=== PATIENT | female | born 1985 | race Caucasian/White ===

== ENCOUNTER 2016-08-27 09:55 | Outpatient (CLI) | payer BC ==
[~2016-08-27] VITALS: Ht 157.5 cm; Wt 68.0 kg
[~2016-08-27 09:55] MED LIST: AZIT-21 PO; NORG1TAB; ONDAN4ODT PO; PRCD5U PO
--- OUTSIDE RECORDS SUMMARY | 2016-08-27 10:00 | XMS REPORT | Continuity of Care Document ---
Author Author [facility] Organization [facility] Address Unknown Phone Unavailable Care Team Providers Care Utilization Coordinator Name Role Phone PCP Unavailable Source Comments Some departments are not documenting in the electronic medical record. If you do not see the information that you expected, contact Release of Information in the Health Information Management department at [phone] for further assistance in locating additional records.[facility] Active Allergies and Adverse Reactions Not on File Current Medications Not on file Active Problems Not on file Social History Tobacco Use Types Packs/Day Years Used Date Never Assessed Plan of Care Health Maintenance Due Date Last Done Comments Physical (Comprehensive) 12/12/1991 Exam Pertussis Vaccine 12/12/1995 Tetanus Vaccine 2001 Influenza Vaccine 03/14/2016 Cervical Cancer Screening 01/02/2019 01/03/2016 Results from Last 3 Months Not on file
[2016-08-27 10:03] VITALS: BP 121/69
[2016-08-27] MEDS ORDERED: PREN-53 PO (10:09)
[2016-08-27] MEDS ORDERED: FLU TRIvalent (5 YOA+) 2016-17 (AFLURIA) 0.5 ML IM ONE (11:00)
--- NOTE | 2016-08-28 08:38 | Physician Query-Final Dx ---
GILMER SALINAS 08/28/16 0838: Clinic Account Progress/Dx Physician Query: Please give diagnosis Date of Service Aug 27, 2016 at 09:55 DENNIS MORSE MD 08/28/16 1131: Clinic Account Progress/Dx DIAGNOSIS: Diagnosis Fa;se labor GILMER SALINAS Aug 28, 2016 08:38 DENNIS MORSE MD Aug 28, 2016 11:31
== END 2016-08-27 12:15 | disposition home or self-care (01) ==
LOC: LDRP 09:55 → WSo 09:55
PROVIDERS: ATTEND Obstetrics & Gynecology
DX: O47.02 False labor before 37 completed weeks of gestation, second trimester (principal); Z3A.27 27 weeks gestation of pregnancy
CPT/HCPCS: 87210; 99213

== ENCOUNTER 2016-11-20 06:52 | Inpatient (IN) | payer BC ==
[2016-11-20] VITALS (39 sets, daily range): BP systolic 97–149; BP diastolic 55–90
[~2016-11-20] VITALS: Ht 157.5 cm; Wt 75.5 kg
[~2016-11-20 06:52] MED LIST changes: +PREN-53 PO
[2016-11-20] MEDS ORDERED: OXYTOCIN/NORMAL SALINE 500 ML IV SCH ×2 (07:41→07:43)
[2016-11-20] MEDS ORDERED: TETANUS,DIPTH,PERTUSS P/F (BOOSTRIX) 0.5 ML VIAL IM ONE (07:45)
[2016-11-20] MEDS ORDERED: oxyCODONE/APAP 10/325MG (PERCOCET 10) TABLET PO PRN (07:45)
[2016-11-20] MEDS ORDERED: BENZOCAINE/MENTHOL (DERMOPLAST) 56 ML CAN TP PRN (07:45)
[2016-11-20] MEDS ORDERED: MEASLES,MUMPS,RUBELLA 1 EA INJ SC ONE (07:45)
--- NOTE | 2016-11-20 07:47 | History & Physical ---
History and Physical this patient is a 30-year-old white female with an EDC of 5 1717 presenting now for induction of labor electively. This was result of IVF. has been uncomplicated GBS culture was negative. Patient reports no rupture membranes or bleeding. She does feel baby moving. Allergies are none Medications are vitamins Past medical history, past surgical history, obstetric history, family history, and social histories are per the antepartum record HEENT exam is normal Neck is supple no lymphadenopathy no thyromegaly Abdomen is gravid soft nontender nondistended Extreme show no clubbing cyanosis. there is no Homans sign Pelvic exam is pending Assessment and plan 39 week intrauterine admitted now for induction of labor electively. This was a result of IVF. Anticipation is for vaginal delivery. Plans preparation would be in place for if needed. 39 week elective induction of labor Allergies and Home Medications Allergies Coded Allergies: No Known Drug Allergies (Verified , 03/14/09) Home Medications Mrg369/Iron Fumarate/FA/Dss Unknown Strength Tablet, 1 EACH PO DAILY, (Reported) DENNIS MORSE MD November 20, 2016 7:47 am
[2016-11-20 08:05] LABS: BASOPHILS % (AUTO) 0 % (0-10); EOSINOPHILS # (AUTO) 0.2 10^3/uL (0.0-0.3); EOSINOPHILS % (AUTO) 2 % (0-10); LYMPHOCYTES % (AUTO) 21 % (12-44); MEAN CORPUSCULAR HEMOGLOBIN 29 PG (25-34); MEAN CORPUSCULAR HGB CONC 33 G/DL (32-36); MEAN CORPUSCULAR VOLUME 88 FL (80-99); MEAN PLATELET VOLUME 10.2 FL (7.4-10.4); MONOCYTES # (AUTO) 0.7 X 10^3 (0.0-1.0); MONOCYTES % (AUTO) 7 % (0-12); NEUTROPHILS # (AUTO) 6.9 X 10^3 (1.8-7.8); NEUTROPHILS % (AUTO) 70 % (42-75); PLATELET COUNT 292 10^3/uL (130-400); RED BLOOD COUNT 4.23 10^6/uL (4.35-5.85); RED CELL DISTRIBUTION WIDTH 13.8 % (10.0-14.5); WHITE BLOOD COUNT 9.8 10^3/uL (4.3-11.0)
[2016-11-20] MEDS: D5 LR IV SOLUTION 1,000 ML IV SCH ×2 (08:17→17:45)
[2016-11-20] MEDS ORDERED: SUFENTA 0.6MCG/ML BUPIVA 0.125 100 ML ONE (08:32)
[2016-11-20 08:41] LABS: BAND NEUTROPHILS 5 %; BASOPHILS % (MANUAL) 0 %; EOSINOPHILS % (MANUAL) 2 %; LYMPHOCYTES % (MANUAL) 26 %; NEUTROPHILS % (MANUAL) 62 %
[2016-11-20] MEDS ORDERED: BUPIVACAINE 0.25% 30 ML (SENSORCAINE) VIAL ONE (08:59)
[2016-11-20] MEDS ORDERED: LACTATED RINGERS 1,000 ML IV ONE (09:04)
[2016-11-20] MEDS ORDERED: BUPIVACAINE 0.25% 30 ML (SENSORCAINE) VIAL INJ ONE (09:15)
[2016-11-20] MEDS ORDERED: EPIDURAL (SUFENTA 0.6MCG/ML BUPIVA 0.125%) 100 ML BAG EPI SCH (09:15)
[2016-11-20] MEDS ORDERED: NALOXONE 0.4 MG/ML 1 ML (NARCAN) VIAL IV PRN (09:15)
[2016-11-20] MEDS ORDERED: ONDANSETRON 4 MG/2 ML (SDV) Z0FRAN IV PRN (09:15)
[2016-11-20] MEDS ORDERED: LIDOCAINE/EPI 1%-1:200,000 (XYLOCAINE) 30 ML VIAL ONE (12:08)
[2016-11-20] MEDS ORDERED: LIDOCAINE/EPI 1%-1:200,000 (XYLOCAINE) 30 ML VIAL INJ ONE (12:38)
[2016-11-20] MEDS: KETOROLAC 30 MG/ML VIAL IV SCH ×3 (13:39→20:26)
[2016-11-20] MEDS: DOCUSATE SODIUM 100 MG (COLACE) CAP PO SCH ×2 (17:46→20:26)
--- NOTE | 2016-11-20 18:20 | OB Bishop Score ---
Meek Score 8 8 DENNIS MORSE MD November 20, 2016 6:20 pm
--- NOTE | 2016-11-21 00:31 | OPERATIVE REPORT ---
DATE OF SERVICE: 11/20/2016 DELIVERY NOTE The patient delivered by term spontaneous vaginal delivery a viable female infant with Apgars of 8 and 9 at 1 and 5 minutes, respectively. Weight is 6 pounds 13 ounces, time of 12:42, and a cord arterial blood pH is pending. The was delivered over a midline episiotomy that was performed at the patient's request when she had pushed the baby down on the perineum and could feel herself tearing periurethrally and around the hymenal ring. Episiotomy was performed. The baby delivered with the next push. The infant was bulb suctioned Topof[place] on delivery of the head and again on completion of delivery. The umbilical cord was doubly clamped. When it was pulseless, the father cut the cord. The baby was passed to mom's abdomen. Cord blood was obtained including a cord blood pH due to repetitive decels. The placenta then delivered spontaneously Saha. It was a normal placenta, but it did have an accessory lobe attached thereto. The placental mass was sent to pathology for permanent section. The cervix, vagina, rectum and perineum were examined and found intact, except for small periurethral lacerations, a couple of hymenal lacerations and the midline episiotomy. The episiotomy was repaired with a single suture of 3-0 Vicryl to good hemostasis and to good reapproximation anatomically. The lacerations were oozing some periurethrally and around the introitus, but these were not bleeding excessively and were not repaired. Sponge and needle counts were correct on completion of the delivery and the repair. Estimated blood loss was around 200 mL. The patient remained in the LDR for recovery. The baby remained with the mom. Job ID: [id number] DocumentID: [id number] Dictated Date: 11/20/2016 13:02:39 Butter Maker Date: 11/21/2016 00:30:44 Dictated By: DENNIS MORSE MD
[2016-11-21 02:05] VITALS: BP 111/67
[2016-11-21] MEDS: KETOROLAC 30 MG/ML VIAL IV SCH (02:08)
[2016-11-21 06:30] VITALS: BP 112/66
[2016-11-21] MEDS ORDERED: IBUPROFEN 800 MG (MOTRIN) TAB PO SCH (07:45)
--- NOTE | 2016-11-21 07:49 | Progress Note-Standard ---
Standard Progress Note Progress Notes/Assess & Plan Progress/Assessment & Plan this patient is without complaint. She is ablating, voiding, tolerating by mouth, denies chest pain, denies shortness breath, denies nausea vomiting, denies headache, she is requesting discharge home. Vital Signs Date Time Temp Pulse Resp B/P (MAP) Pulse Ox O2 Delivery O2 Flow Rate FiO2 11/21/16 06:30 98.4 78 18 112/66 98 Room Air 11/21/16 02:05 99.1 75 18 111/67 96 Room Air 11/20/16 20:00 97.2 74 19 114/72 97 Room Air 11/20/16 14:53 91 18 103/60 Room Air 11/20/16 14:37 102 97/57 11/20/16 14:23 90 18 105/55 11/20/16 14:08 88 18 115/64 11/20/16 13:53 101 18 125/57 11/20/16 13:38 98 18 112/55 11/20/16 13:23 98.5 117 18 124/86 11/20/16 13:08 97.4 115 18 125/59 11/20/16 12:53 98.3 99 135/67 11/20/16 11:15 71 18 110/64 100 11/20/16 11:00 69 18 100 11/20/16 10:45 74 18 115/57 100 11/20/16 10:40 75 18 117/59 100 11/20/16 10:35 73 18 120/64 100 11/20/16 10:30 70 18 114/61 100 11/20/16 10:25 83 18 112/63 100 11/20/16 10:20 71 18 119/68 100 11/20/16 10:15 65 18 113/59 100 11/20/16 10:10 80 18 112/58 100 11/20/16 10:05 113 18 112/58 100 11/20/16 10:00 124 18 114/64 100 11/20/16 09:55 90 18 112/58 99 11/20/16 09:50 82 18 121/56 99 11/20/16 09:45 128 18 128/60 100 11/20/16 09:40 106 18 125/65 99 11/20/16 09:35 112 18 120/67 11/20/16 09:30 111 18 122/61 11/20/16 09:25 83 18 128/64 99 11/20/16 09:20 92 18 119/69 98 11/20/16 09:15 84 18 143/72 11/20/16 09:00 87 18 134/76 11/20/16 08:45 97.6 77 18 126/73 11/20/16 08:30 83 133/84 I & O 11/21/16 07:00 Intake Total 1700 ml Balance 1700 ml vital signs are stable. Patient afebrile. Fundus is firm below the umbilicus and nontender. Extremities show no clubbing cyanosis. There is no Homans sign. There is slight pretibial pitting edema that is normal. Assessment and plan post day number 1 status post term spontaneous vaginal delivery doing well. Plan is for discharge home with follow-up in clinic. Final Diagnosis 39 week spontaneous vaginal delivery DENNIS MORSE MD November 21, 2016 7:49 am
[2016-11-21] MEDS ORDERED: IBUP-1780 PO (07:50)
[2016-11-21] MEDS ORDERED: OXYC-465 PO (07:50)
[2016-11-21] MEDS ORDERED: DOCU100C37 PO (07:50)
--- NOTE | 2016-11-21 07:51 | Discharge Instructions ---
Discharge Instructions Discharge Medications New, Converted or Re-Newed RX: RX on Chart Patient Instructions Patient Instructions: as directed Return to The Hospital For: as directed Activity & Diet Discharge Diet: No Restrictions Activity as Tolerated: No Orders-Post D/C & Referrals Follow Up Appt: Call to make follow up appt. for patient in 4 weeks. Activity Per routine post vaginal delivery instructions. Please call in RX to patient pharmacy. Diet as tolerated Patient may shower or tub bathe as desired. DENNIS MORSE MD November 21, 2016 7:51 am
[2016-11-21 08:00] VITALS: BP 110/72
[2016-11-21] MEDS: DOCUSATE SODIUM 100 MG (COLACE) CAP PO SCH (09:44)
[2016-11-21 12:00] VITALS: BP 121/76
--- NOTE | 2016-11-21 13:16 | Anesthesia-Regional Post-Op ---
Regional Patient Condition Mental Status: Alert, Oriented x3 Circulation: Same as Pre-Op Headache: Absent Sensation: Full Recovery Motor Block: Absent Post Op Complications Complications None Follow Up Care/Instructions Patient Instructions None needed. Anesthesia/Patient Condition Patient is doing well, no complaints, stable vital signs, no apparent adverse anesthesia problems. No complications reported per nursing. YOEL WILSON CRNA November 21, 2016 13:16
== END 2016-11-21 14:50 | disposition home or self-care (01) | DRG 775 ==
LOC: LDRP 06:52
PROVIDERS: ADMIT Obstetrics & Gynecology; ATTEND Obstetrics & Gynecology
PROC: 10E0XZZ Delivery of Products of Conception, External Approach (ICD-10-PCS; principal; 2016-11-20)
PROC: 0W8NXZZ Division of Female Perineum, External Approach (ICD-10-PCS; 2016-11-20)
PROC: 3E033GC Introduction of Other Therapeutic Substance into Peripheral Vein, Percutaneous Approach (ICD-10-PCS; 2016-11-20)
DX: O80 Encounter for full-term uncomplicated delivery (principal); Z37.0 Single live birth; Z3A.39 39 weeks gestation of pregnancy
CPT/HCPCS: 36415; 85007; 85027; 86850; 86900; 86901

== ENCOUNTER 2019-10-27 00:28 | Inpatient (IN) | payer BC ==
[~2019-10-27] VITALS: Ht 157.5 cm; Wt 75.0 kg
[2019-10-27] VITALS (43 sets, daily range): BP systolic 108–190; BP diastolic 55–87
[~2019-10-27 00:28] MED LIST changes: +DOCU100C37 PO; +IBUP-1780 PO; +OXYC-465 PO
[2019-10-27] MEDS ORDERED: D5 LR IV SOLUTION 1,000 ML IV ONE (00:30)
--- NOTE | 2019-10-27 00:30 | NUR ---
EBONY YAÑEZ presented to unit via EMS from home, accompanied by EMS staff , with c/o LABOR, SROM. EBONY YAÑEZ gowned and to bed. EFHM and TOCO applied, VS taken. EBONY YAÑEZ oriented to bed controls, call light, TV, heat, and A/C controls.
[2019-10-27] MEDS ORDERED: D5 LR IV SOLUTION 1,000 ML IV SCH (00:35)
[2019-10-27] MEDS ORDERED: AMPICILLIN FOR IV USE 2,000 MG in WATER (STERILE) FOR INJECTION 14.8 ML IV SCH (00:35)
[2019-10-27] MEDS ORDERED: WATER (STERILE) FOR INJECTION 20 ML ONE (00:39)
[2019-10-27] MEDS ORDERED: AMPICILLIN FOR IV USE 2,000 MG VIAL ONE (00:39)
[2019-10-27 00:57] LABS: BASOPHILS % (AUTO) 0 % (0-10); EOSINOPHILS # (AUTO) 0.1 10^3/uL (0.0-0.3); EOSINOPHILS % (AUTO) 1 % (0-10); HEMATOCRIT 35 % (35-52); HEMOGLOBIN 11.5 G/DL (11.5-16.0); LYMPHOCYTES # (AUTO) 2.6 X 10^3 (1.0-4.0); LYMPHOCYTES % (AUTO) 27 % (12-44); MEAN CORPUSCULAR HGB CONC 33 G/DL (32-36); MEAN CORPUSCULAR VOLUME 87 FL (80-99); MEAN PLATELET VOLUME 9.8 FL (7.4-10.4); MONOCYTES % (AUTO) 11 % (0-12); NEUTROPHILS % (AUTO) 62 % (42-75); PLATELET COUNT 292 10^3/uL (130-400); RED CELL DISTRIBUTION WIDTH 14.8 % (10.0-14.5); WHITE BLOOD COUNT 9.8 10^3/uL (4.3-11.0)
[2019-10-27 01:28] LABS: MEAN CORPUSCULAR HEMOGLOBIN 28 PG (25-34)
[2019-10-27] MEDS ORDERED: fentaNYL 2 mcg/ml BUPIVA 0.125 100 ML ONE (01:28)
[2019-10-27] MEDS ORDERED: BUPIVACAINE 0.25% 30 ML (SENSORCAINE) VIAL ONE (01:42)
[2019-10-27] MEDS ORDERED: fentaNYL INJECTION 100 MCG/2 ML AMP ONE (01:43)
[2019-10-27] MEDS ORDERED: LACTATED RINGERS 1,000 ML IV ONE (02:29)
[2019-10-27] MEDS ORDERED: CATHETER FLUSH 10 ML SYR IV PRN (02:30)
[2019-10-27] MEDS ORDERED: EPIDURAL (fentaNYL 2 MCG/ML BUPIVA 0.125%)100 ML BAG EPI SCH (02:30)
[2019-10-27] MEDS ORDERED: NALOXONE 0.4 MG/ML 1 ML (NARCAN) VIAL IV PRN (02:30)
[2019-10-27] MEDS ORDERED: AMPICILLIN FOR IV USE 1,000 MG/VIAL ONE (04:39)
[2019-10-27] MEDS ORDERED: WATER (STERILE) FOR INJECTION 10 ML ONE (04:39)
[2019-10-27] MEDS ORDERED: OXYTOCIN PRE-MIX DRIP 500 ML IV ONE (04:39)
[2019-10-27] MEDS ORDERED: AMPICILLIN FOR IV USE 1,000 MG in WATER (STERILE) FOR INJECTION 7.4 ML IV SCH (04:45)
[2019-10-27] MEDS ORDERED: OXYTOCIN PRE-MIX DRIP 500 ML IV SCH ×2 (04:59→06:35)
[2019-10-27] MEDS ORDERED: LIDOCAINE/EPI 2% 1:200,00 (XYLOCAINE) 10 ML VIAL ONE (06:07)
--- NOTE | 2019-10-27 06:39 | History & Physical ---
History and Physical Date Seen by Provider: Oct 27, 2019 Time Seen by Provider: 06:37 This patient is a 33-year-old white female with an EDC of November 04, 2019. She presented and active labor. Her GBS culture was positive. She was started on ampicillin for GBS prophylaxis on admission. She labored through the night now complete. She presented with complaint of rupture membrane as well. Allergies are none Medications are vitamins Medical social and surgical histories are per the antepartum record HEENT exam is normal Neck is supple no lymphadenopathy no thyromegaly Abdomen is gravid soft nontender nondistended Extreme show no clubbing cyanosis. Homans sign. Pelvic exam is deferred Vital Signs Date Time Temp Pulse Resp B/P (MAP) Pulse Ox O2 Delivery O2 Flow Rate FiO2 10/27/19 05:15 76 18 117/64 (81) 100 Room Air 10/27/19 05:00 36.0 95 18 131/73 (92) 100 Room Air 10/27/19 04:45 74 18 117/58 (77) 99 Room Air 10/27/19 04:30 93 18 122/71 (88) 99 Room Air 10/27/19 04:15 81 18 121/70 (87) 100 Room Air 10/27/19 04:00 75 18 123/58 (79) 99 Room Air 10/27/19 03:45 77 18 120/62 (81) 100 Room Air 10/27/19 03:30 74 18 119/59 (79) 100 Room Air 10/27/19 03:15 90 18 117/73 (88) 100 Room Air 10/27/19 03:00 77 18 121/65 (83) 100 Room Air 10/27/19 02:55 83 18 108/63 (78) 100 Room Air 10/27/19 02:50 96 18 122/62 (82) 100 Room Air 10/27/19 02:45 85 18 120/64 (82) 100 Room Air 10/27/19 02:40 76 18 111/75 (87) 99 Room Air 10/27/19 02:35 82 18 114/66 (82) 99 Room Air 10/27/19 02:30 75 18 113/56 (75) 99 Room Air 10/27/19 02:25 75 18 110/60 (77) 99 Room Air 10/27/19 02:20 36.5 85 18 110/65 (80) 99 Room Air 10/27/19 02:15 98 18 125/62 (83) 100 Room Air 10/27/19 02:10 96 18 127/59 (81) 100 Room Air 10/27/19 02:05 98 18 141/72 (95) 100 Room Air 10/27/19 01:50 80 18 122/68 (86) 100 Room Air 10/27/19 01:35 77 18 123/67 (85) Room Air 10/27/19 01:20 76 18 118/67 (84) Room Air 10/27/19 01:04 36.5 76 18 124/72 (89) Room Air 10/27/19 01:00 36.2 96 18 99 Room Air 10/27/19 00:38 36.2 96 18 99 Room Air I & O 10/27/19 07:00 Intake Total 1022.2 ml Balance 1022.2 ml Vital signs are stable. Patient is afebrile. Assessment and plan term at 38+ weeks gestation. Patient presented in active labor now complete. We anticipate a vaginal delivery shortly. 38 week in active labor with spontaneous rupture membranes Allergies and Home Medications Allergies Coded Allergies: No Known Drug Allergies (Verified , 03/14/09) Home Medications Docusate Sodium 100 Mg Capsule, 100 MG PO BID Prescribed by: DENNIS IRWIN on 11/21/16749 Ibuprofen 800 Mg Tablet, 800 MG PO Q6H Prescribed by: DENNIS IRWIN on 11/21/16749 Oxycodone HCl/Acetaminophen 1 Each Tablet, 0 TAB PO Q4H PRN for PAIN-MODERATE Prescribed by: DENNIS IRWIN on 11/21/16749 Pys570/Iron Fumarate/FA/Dss Unknown Strength Tablet, 1 EACH PO DAILY, (Reported) Patient Home Medication List Home Medication List Reviewed: Yes Clinical Quality Measures DVT/VTE Risk/Contraindication: Risk Factor Score Per Nursin RFS Level Per Nursing on Admit: 1=Low/No VTE PPX DENNIS MORSE MD Oct 27, 2019 06:39
[2019-10-27] MEDS ORDERED: DCS100C PO (06:41)
[2019-10-27] MEDS ORDERED: OXYC1TAB87 PO (06:41)
[2019-10-27] MEDS ORDERED: IBUP-1780 PO (06:41)
--- NOTE | 2019-10-27 06:41 | Discharge Inst-Surgical ---
Discharge Inst-Surgical Depart Medication/Instructions New, Converted or Re-Newed RX: RX on Chart Consults/Follow Up Patient Instructions: As directed Orders & Referrals Follow Up Appt: Call to make follow up appt. for patient in 4 weeks. Activity Per routine post vaginal delivery instructions. Please call in RX to patient pharmacy. Diet as tolerated Patient may shower or tub bathe as desired. Activity Activity as Tolerated: No Diet Discharge Diet: No Restrictions DENNIS MORSE MD Oct 27, 2019 06:41
[2019-10-27] MEDS ORDERED: TETANUS,DIPTH,PERTUSS P/F (BOOSTRIX) 0.5 ML VIAL IM ONE (06:45)
[2019-10-27] MEDS ORDERED: ONDANSETRON 4 MG/2 ML (SDV) Z0FRAN IVP PRN (06:45)
[2019-10-27] MEDS ORDERED: BENZOCAINE/MENTHOL (DERMOPLAST) 60 ML CAN TP PRN (06:45)
[2019-10-27] MEDS ORDERED: oxyCODONE/APAP 5/325MG (PERCOCET 5) TABLET PO PRN (06:45)
[2019-10-27] MEDS ORDERED: MEASLES,MUMPS,RUBELLA 1 EA INJ SC ONE (06:45)
--- NOTE | 2019-10-27 07:10 | NUR ---
Report given to Ela WILLARD.
--- NOTE | 2019-10-27 07:30 | NUR ---
0730 FF @ u with light rubra flow. VSS stable. Breast feeding . Good bonding. 0755 FF @ u but expressed moderate sized clots. Pads changed. 0810 FF @ u no clots. Moderate rubra flow 0830 FF @ u with moderate rubra flow. No clots. 0900 FF @ u/1 with moderate rubra flow. Pad changed. Denies pain. Pt could be transferred to but left leg is still numb from epidural. Also awaiting a room to be available with [facility]. 1000 Complains of cramping.
--- NOTE | 2019-10-27 07:47 | OPERATIVE REPORT ---
DATE OF SERVICE: 10/27/2019 DELIVERY NOTE The patient delivered by term spontaneous vaginal delivery a viable female infant with Apgars of 9 and 9 at 1 and 5 minutes respectively. Weight is 8 pounds and 1 ounce, cord blood pH 7.27. time of 06:48. The infant was delivered over an intact perineum under epidural analgesia. There was a nuchal cord x1 that was easily released. The was bulb suctioned on delivery of the head and again on completion of delivery. The umbilical cord was doubly clamped. When it was pulseless, father cut the cord and the baby was passed to mom's abdomen. The placenta delivered promptly spontaneously Saha. It was normal with a 3-vessel cord. The cervix, vagina, perineum, and rectum were examined and found intact, except for some mild superficial abrasion at the introitus and in the periurethral areas bilaterally. These were hemostatic and required no repair. Sponge and needle counts were correct on completion of delivery and the post-delivery inspection. The mom tolerated the delivery well and remained in the LDR for recovery. Estimated blood loss was around 100 mL. The baby remained in the room with the mom. Job ID: [id number] DocumentID: [id number] Dictated Date: 10/27/2019 07:02:22 Geophysical Laboratory Director Date: 10/27/2019 07:47:11 Dictated By: MD DERRICK JEFFREY
[2019-10-27] MEDS ORDERED: WITCH HAZEL(TUCKS) 40 EA JAR ONE (08:09)
[2019-10-27] MEDS ORDERED: IBUPROFEN 800 MG (MOTRIN) TAB PO ONE (08:45)
[2019-10-27] MEDS: DOCUSATE SODIUM 100 MG (COLACE) CAP PO SCH ×2 (08:59→20:02)
[2019-10-27] MEDS: KETOROLAC 30 MG/ML VIAL IVP SCH ×3 (09:12→22:36)
[2019-10-27] MEDS ORDERED: WITCH HAZEL(TUCKS) 40 EA JAR TOP PRN (09:15)
--- NOTE | 2019-10-27 14:24 | NUR ---
This RN took over Pt care at this time. Pt verbalizes no complaints at this time
[2019-10-27] MEDS: CATHETER FLUSH 10 ML SYR IV SCH ×2 (17:59→22:36)
[2019-10-28] VITALS: BP 114/60
[2019-10-28 04:00] VITALS: BP 113/60
[2019-10-28] MEDS ORDERED: IBUPROFEN 800 MG (MOTRIN) TAB PO ONE (05:36)
[2019-10-28] MEDS: IBUPROFEN 800 MG (MOTRIN) TAB PO SCH ×2 (06:03→11:49)
[2019-10-28] MEDS: CATHETER FLUSH 10 ML SYR IV SCH (06:07)
[2019-10-28 08:00] VITALS: BP 115/64
[2019-10-28] MEDS: DOCUSATE SODIUM 100 MG (COLACE) CAP PO SCH (08:07)
--- NOTE | 2019-10-28 09:16 | Anesthesia-Regional Post-Op ---
Regional Patient Condition Mental Status: Alert, Oriented x3 Circulation: Same as Pre-Op Headache: Absent Sensation: Full Recovery Motor Block: Absent Post Op Complications Complications None Follow Up Care/Instructions Patient Instructions None needed. Anesthesia/Patient Condition Patient is doing well, no complaints, stable vital signs, no apparent adverse anesthesia problems. No complications reported per nursing. JONY AVILA CRNA Oct 28, 2019 09:16
[2019-11-01] MEDS ORDERED: IBUPROFEN 800 MG (MOTRIN) TAB PO SCH (06:00)
== END 2019-10-28 13:10 | disposition home or self-care (01) | DRG 807 ==
LOC: LDRP 00:28 → WSo 00:28 → LDRP 00:50
PROVIDERS: ADMIT Obstetrics & Gynecology; ATTEND Obstetrics & Gynecology
PROC: 10E0XZZ Delivery of Products of Conception, External Approach (ICD-10-PCS; principal; 2019-10-27)
DX: O99.824 Streptococcus B carrier state complicating childbirth (principal); Z37.0 Single live birth; O69.81X0 Labor and delivery complicated by cord around neck, without compression, not applicable or unspecified; O71.82 Other specified trauma to perineum and vulva; Z3A.38 38 weeks gestation of pregnancy
CPT/HCPCS: 36415; 85025; 86780; 86850; 86900; 86901; 99212

== ENCOUNTER 2022-07-26 01:22 | Emergency (ER) | payer BC ==
[~2022-07-26] VITALS: Ht 157.5 cm; Wt 63.5 kg
[~2022-07-26 01:22] MED LIST changes: +DOCU-239 PO; -OXYC-465 PO; +OXYC-556 PO; +OXYC1TAB87 PO
[2022-07-26] MEDS ORDERED: ONDANSETRON 4 MG/2 ML (SDV) Z0FRAN IVP ONE (01:30)
[2022-07-26] MEDS ORDERED: LACTATED RINGERS 1,000 ML IV ONE (01:30)
--- NOTE | 2022-07-26 01:41 | ED General ---
General Stated Complaint: ETOH Source of Information: EMS Exam Limitations: Intoxication (PT IS NOT ANWERING QUESTIONS ON ARRIVAL) History of Present Illness Date Seen by Provider: Jul 26, 2022 Time Seen by Provider: 01:28 Initial Comments PT ARRIVES VIA EMS FROM "505" BAR PT HAS BEEN DRINKING AN UNKNOWN AMOUNT OF ALCOHOL TONIGHT, AND WAS "PASSED OUT" ON THE BATHROOM AT THE BAR PT HAS VOMITED PRIOR TO ARRIVAL. EMS HAS STARTED IV FLUIDS, BUT NO MEDICATIONS. ON ARRIVAL, PT IS SLUMPED OVER TO THE LEFT, AND IS NOT TALKING OR FOLLOWING COMMANDS A FEW MINUTES AFTER ARRIVAL, SHE IS NOW AWAKE AND SITTING UP AND ABLE TO ANSWER SOME QUESTIONS, SHE KNOWS SHE IS AT THE ER SHE STATES SHE DOES NOT KNOW WHAT HAPPENED OR WHY SHE IS HERE SHE ADMITS TO DRINKING, BUT DOES NOT REMEMBER WHAT SHE WAS DRINKING OR HOW MUCH. SHE IS ABLE TO ANSWER BASIC HEALTH QUESTIONS. SHE DENIES NAUSEA AT THIS TIME. SHE DENIES PAIN ANYWHERE AT THIS TIME. PCP: DR. KRISTA COTTER Allergies and Home Medications Allergies Coded Allergies: No Known Drug Allergies (Verified , 03/14/09) Patient Home Medication List Home Medication List Reviewed: Yes Docusate Sodium (Dok) 100 Mg Capsule, 100 MG PO BID Prescribed by: DENNIS IRWIN on 10/27/19640 Ibuprofen (Ibuprofen) 800 Mg Tablet, 800 MG PO Q6HR Prescribed by: DENNIS IRWIN on 10/27/19640 Oxycodone HCl/Acetaminophen (Percocet 5-325 mg Tablet) 1 Each Tablet, 1 TAB PO Q4H PRN for PAIN-MODERATE (5-7) Prescribed by: DENNIS IRWIN on 10/27/19640 Usm610/Iron Fumarate/FA/Dss ( 19 Tablet) Unknown Strength Tablet, 1 EACH PO DAILY, (Reported) Entered as Reported by: APOORVA MORALES on 08/27/16 1009 Review of Systems Review of Systems Constitutional: no symptoms reported EENTM: no symptoms reported Respiratory: no symptoms reported Cardiovascular: no symptoms reported Gastrointestinal: see HPI, vomiting Genitourinary: no symptoms reported Musculoskeletal: no symptoms reported Skin: no symptoms reported Psychiatric/Neurological: See HPI Past Ftixxqb-Zoiyba-Jrlkmn Hx Patient Social History Alcohol Use?: Yes Immunizations Up To Date PED Vaccines UTD: Yes Seasonal Allergies Seasonal Allergies: No Past Medical History Surgeries: No Respiratory: No Cardiac: No Neurological: No Female Reproductive Disorders: Denies Sexually Transmitted Disease: No HIV/AIDS: No Genitourinary: No Gastrointestinal: No Musculoskeletal: No Endocrine: No HEENT: No Cancer: No Psychosocial: Yes Anxiety, Depression Integumentary: No Blood Disorders: No Adverse Reaction/Blood Tranf: No Family Medical History Diabetes mellitus GRANDMOTHER, MATERNAL FH: neuropathy 19 MOTHER Hepatitis C 19 FATHER 19 MOTHER Hypertension 19 FATHER Kidney disease 19 FATHER (KIDNEY FAILURE) Physical Exam Vital Signs Vital Signs - First Documented 07/26/22 01:24 Temp 36.1 Pulse 108 Resp 16 B/P (MAP) 111/73 (86) Pulse Ox 99 O2 Delivery Room Air Capillary Refill : Height, Weight, BMI Height: 5'2.00" Weight: 166lbs. 6.0oz. 75.125014yb; 30.23 BMI Method:Stated General Appearance: Other (REEKS OF ALCOHOL, SPEECH IS SLOW AND SLURRED, COVERED IN VOMIT. ) HEENT: PERRL/EOMI, Other (NO EXTERNAL EVIDENCE OF TRAUMA TO HEAD OR FACE, NO TENDERNESS TO HEAD OR FACE) Neck: Full Range of Motion, Normal Inspection, Non Tender, Supple Respiratory: Normal Breath Sounds, No Accessory Muscle Use, No Respiratory Distress Cardiovascular: Regular Rate, Rhythm, No Murmur Gastrointestinal: Non Tender, Soft Back: No CVA Tenderness, No Vertebral Tenderness Extremity: Normal Inspection Neurologic/Psychiatric: Alert, No Motor/Sensory Deficits (GROSSLY INTACT), animal husbandry worker II-XII Norm as Tested (GROSSLY INTACT), Other (MENTATION ABOVE) Skin: Normal Color, Warm/Dry Progress/Results/Core Measures Suspected Sepsis SIRS Temperature: Pulse: Respiratory Rate: Laboratory Tests 07/26/22 01:37: White Blood Count 12.0H Blood Pressure / Mean: Laboratory Tests 07/26/22 01:37: Creatinine 0.80, Platelet Count 302, Total Bilirubin 0.2 Results/Orders Lab Results Laboratory Tests Test 07/26/22 01:37 07/26/22 02:03 Range/Units White Blood Count 12.0 H 4.3-11.0 10^3/uL Red Blood Count 4.56 3.80-5.11 10^6/uL Hemoglobin 14.3 11.5-16.0 g/dL Hematocrit 42 35-52 % Mean Corpuscular Volume 92 80-99 fL Mean Corpuscular Hemoglobin 31 25-34 pg Mean Corpuscular Hemoglobin Concent 34 32-36 g/dL Red Cell Distribution Width 12.4 10.0-14.5 % Platelet Count 302 130-400 10^3/uL Mean Platelet Volume 9.1 9.0-12.2 fL Immature Granulocyte % (Auto) 2 % Neutrophils (%) (Auto) 55 42-75 % Lymphocytes (%) (Auto) 36 12-44 % Monocytes (%) (Auto) 6 0-12 % Eosinophils (%) (Auto) 1 0-10 % Basophils (%) (Auto) 1 0-10 % Neutrophils # (Auto) 6.6 1.8-7.8 10^3/uL Lymphocytes # (Auto) 4.3 H 1.0-4.0 10^3/uL Monocytes # (Auto) 0.8 0.0-1.0 10^3/uL Eosinophils # (Auto) 0.1 0.0-0.3 10^3/uL Basophils # (Auto) 0.1 0.0-0.1 10^3/uL Immature Granulocyte # (Auto) 0.3 H 0.0-0.1 10^3/uL Sodium Level 142 135-145 MMOL/L Potassium Level 3.5 L 3.6-5.0 MMOL/L Chloride Level 107 98-107 MMOL/L Carbon Dioxide Level 24 21-32 MMOL/L Anion Gap 11 5-14 MMOL/L Blood Urea Nitrogen 8 7-18 MG/DL Creatinine 0.80 0.60-1.30 MG/DL Estimat Glomerular Filtration Rate 97 BUN/Creatinine Ratio 10 Glucose Level 110 H 70-105 MG/DL Calcium Level 8.9 8.5-10.1 MG/DL Corrected Calcium 8.5 8.5-10.1 MG/DL Total Bilirubin 0.2 0.1-1.0 MG/DL Aspartate Amino Transf (AST/SGOT) 18 5-34 U/L Alanine Aminotransferase (ALT/SGPT) 24 0-55 U/L Alkaline Phosphatase 62 40-136 U/L Total Protein 7.2 6.4-8.2 GM/DL Albumin 4.5 3.2-4.5 GM/DL Serum Test, Qualitative NEGATIVE NEGATIVE Serum Alcohol 375 *H <10 MG/DL Urine Color YELLOW Urine Clarity CLEAR Urine pH 6.0 5-9 Urine Specific [place] <=1.005 1.016-1.022 Urine Protein NEGATIVE NEGATIVE Urine Glucose (UA) NEGATIVE NEGATIVE Urine Ketones NEGATIVE NEGATIVE Urine Nitrite NEGATIVE NEGATIVE Urine Bilirubin NEGATIVE NEGATIVE Urine Urobilinogen 0.2 < = 1.0 MG/DL Urine Leukocyte Esterase NEGATIVE NEGATIVE Urine RBC (Auto) NEGATIVE NEGATIVE Urine RBC NONE /HPF Urine WBC NONE /HPF Urine Crystals NONE /LPF Urine Bacteria NEGATIVE /HPF Urine Casts NONE /LPF Urine Mucus NEGATIVE /LPF Urine Culture Indicated NO Urine Opiates Screen NEGATIVE NEGATIVE Urine Oxycodone Screen NEGATIVE NEGATIVE Urine Methadone Screen NEGATIVE NEGATIVE Urine Propoxyphene Screen NEGATIVE NEGATIVE Urine Barbiturates Screen NEGATIVE NEGATIVE Ur Tricyclic Antidepressants Screen NEGATIVE NEGATIVE Urine Phencyclidine Screen NEGATIVE NEGATIVE Urine Amphetamines Screen NEGATIVE NEGATIVE Urine Methamphetamines Screen NEGATIVE NEGATIVE Urine Benzodiazepines Screen NEGATIVE NEGATIVE Urine Cocaine Screen NEGATIVE NEGATIVE Urine Cannabinoids Screen NEGATIVE NEGATIVE My Orders Orders - PHILIP MATAMOROS DO Ed Iv/Invasive Line Start (07/26/22 01:29) Monitor-Rhythm Ecg Trace Only (07/26/22 01:29) Alcohol (07/26/22 01:29) Cbc With Automated Diff (07/26/22 01:29) Comprehensive Metabolic Panel (07/26/22 01:29) Drug Screen Stat (Urine) (07/26/22 01:29) Hcg,Qualitative Serum (07/26/22 01:29) Ua Culture If Indicated (07/26/22 01:29) Ondansetron Injection (Zofran Injectio (07/26/22 01:30) Ed Iv/Invasive Line Start (07/26/22 01:29) Lactated Ringers (Lr 1000 Ml Iv Solution (07/26/22 01:30) Medications Given in ED Current Medications Medications Dose Ordered Sig/Lillian Route Start Time Stop Time Status Last Admin Dose Admin Lactated Ringer's 1,000 ml @ 0 mls/hr Q0M ONCE IV 07/26/22 01:30 07/26/22 01:31 DC 07/26/22 01:34 0 MLS/HR Ondansetron HCl 4 mg ONCE ONCE IVP 07/26/22 01:30 07/26/22 01:31 DC 07/26/22 01:34 4 MG Vital Signs/I&O 07/26/22 07/26/22 01:24 01:24 Temp 36.1 Pulse 108 Resp 16 B/P (MAP) 111/73 (86) Pulse Ox 99 O2 Delivery Room Air Room Air Capillary Refill : Progress Note : Progress Note GIVEN IV FLUIDS AND ZOFRAN NO VOMITING OR COMPLAINTS OF NAUSEA PT REMAINED AWAKE AND ALERT SHE WAS ABLE TO WALK TO THE BATHROOM, WITH ASSIST MULTIPLE FAMILY MEMBERS ARRIVE, INCLUDING HER . 0152--MOTHER IS IN ROOM WITH PATIENT. PT IS WANTING TO LEAVE, STATING SHE IS FINE. MOTHER IS ENCOURAGING HER TO STAY. PT IS NOT BELLIGERENT, AND IS COOPERATIVE 0230--REVIEWED TEST RESULTS WITH PT AND . FEELS COMFORTABLE TAKING PT HOME, AND PT WANTS TO GO HOME Departure Impression Primary Impression: Acute alcoholic intoxication Disposition: 01 HOME, SELF-CARE Condition: Stable Departure-Patient Inst. Decision time for Depature: 02:35 Referrals: NO,LOCAL PHYSICIAN (PCP/Family) Primary Care Physician Patient Instructions: Alcohol Intoxication ED Add. Discharge Instructions: HOME, REST LOTS OF CLEAR LIQUIDS--WATER, BROTH, JELLO, GATORADE WHEN YOUR NAUSEA IS BETTER, ADD BRATS DIET TO CLEAR LIQUIDS--BANANAS, RICE, APPLESAUCE, TOAST, SALTINES RETURN TO ER IF YOUR SYMPTOMS WORSEN PHILIP MATAMOROS DO Jul 26, 2022 01:41
[2022-07-26 01:45] LABS: BASOPHILS # (AUTO) 0.1 10^3/uL (0.0-0.1); BASOPHILS % (AUTO) 1 % (0-10); EOSINOPHILS # (AUTO) 0.1 10^3/uL (0.0-0.3); EOSINOPHILS % (AUTO) 1 % (0-10); HEMATOCRIT 42 % (35-52); HEMOGLOBIN 14.3 g/dL (11.5-16.0); LYMPHOCYTES # (AUTO) 4.3 10^3/uL (1.0-4.0); LYMPHOCYTES % (AUTO) 36 % (12-44); MEAN CORPUSCULAR HEMOGLOBIN 31 pg (25-34); MEAN CORPUSCULAR HGB CONC 34 g/dL (32-36); MEAN CORPUSCULAR VOLUME 92 fL (80-99); MEAN PLATELET VOLUME 9.1 fL (9.0-12.2); MONOCYTES # (AUTO) 0.8 10^3/uL (0.0-1.0); MONOCYTES % (AUTO) 6 % (0-12); NEUTROPHILS # (AUTO) 6.6 10^3/uL (1.8-7.8); NEUTROPHILS % (AUTO) 55 % (42-75); PLATELET COUNT 302 10^3/uL (130-400)
[2022-07-26 02:04] LABS: ALBUMIN 4.5 GM/DL (3.2-4.5); BILIRUBIN,TOTAL 0.2 MG/DL (0.1-1.0); CALCIUM 8.9 MG/DL (8.5-10.1); CREATININE SERUM 0.8 MG/DL (0.60-1.30); POTASSIUM 3.5 MMOL/L (3.6-5.0); TOTAL PROTEIN 7.2 GM/DL (6.4-8.2)
[2022-07-26 02:07] LABS: BILIRUBIN,URINE NEGATIVE (NEGATIVE); CLARITY,URINE CLEAR; COLOR,URINE YELLOW; GLUCOSE, URINE (UA) NEGATIVE (NEGATIVE); KETONES,URINE NEGATIVE (NEGATIVE); LEUKOCYTE ESTERASE ,URINE NEGATIVE (NEGATIVE); NITRITE,URINE NEGATIVE (NEGATIVE); PROTEIN,URINE NEGATIVE (NEGATIVE)
[2022-07-26 02:14] LABS: BACTERIA,URINE NEGATIVE /HPF
[2022-07-26 02:19] LABS: AMPHETAMINE SCREEN, URINE NEGATIVE (NEGATIVE); BARBITURATE SCREEN URINE NEGATIVE (NEGATIVE); BENZODIAZEPINES SCREEN URINE NEGATIVE (NEGATIVE); CANNABINOID SCREEN, URINE NEGATIVE (NEGATIVE); COCAINE SCREEN URINE NEGATIVE (NEGATIVE); METHADONE STAT NEGATIVE (NEGATIVE); OPIATE SCREEN URINE NEGATIVE (NEGATIVE); OXYCODONE STAT NEGATIVE (NEGATIVE); PROPOXYPHENE STAT NEGATIVE (NEGATIVE); TRICYCLIC ANTIDEPRESSANTS SCRE NEGATIVE (NEGATIVE)
[2022-07-26 02:39] VITALS: BP 118/76
== END 2022-07-26 02:44 | disposition home or self-care (01) ==
LOC: EDUNIT# 01:22 → ER 01:23
DX: F10.129 Alcohol abuse with intoxication, unspecified (principal)
CPT/HCPCS: 80053; 80306; 81000; 84703; 85025; 93041; 99283; G0480; 36415; 80320